=== PATIENT | female | born 1990 | race American Indian/Alaskan Native ===

== ENCOUNTER 2019-10-14 16:17 | Emergency (ER) | payer MEDICAID ==
--- NOTE | 2019-10-14 16:37 | Event Note ---
ED Screening Note ED Screening Note: cough for two days +sob +chest discomfort with coughing no PMHx +sick contact no allergies to meds LNMP: doesnt have cycles secondary to ablation non smoker This initial assessment/diagnostic orders/clinical plan/treatment(s) is/are subject to change based on patients health status, clinical progression and re- assessment by fellow clinical providers in the ED. Further treatment and workup at subsequent clinical providers discretion. Patient/guardian urged not to elope from the ED as their condition may be serious if not clinically assessed and managed. Initial orders include: sepsis initiated ibuprofen and tylenol given
[2019-10-14] MEDS ORDERED: SODIUM CHLORIDE 0.9% IV ONE (16:39)
[2019-10-14] MEDS ORDERED: IBUPROFEN 600 MG TAB PO ONE ×2 (16:41→18:08)
[2019-10-14] MEDS ORDERED: ACETAMINOPHEN 325 MG TAB ONE (16:41)
--- NOTE | 2019-10-14 17:15 | XRay Report ---
CHEST 2 VIEWS INDICATION / CLINICAL INFORMATION: cough, SOB, fever. COMPARISON: None available. FINDINGS: SUPPORT DEVICES: None. HEART / MEDIASTINUM: No significant abnormality. LUNGS / PLEURA: No significant pulmonary or pleural abnormality. No pneumothorax. ADDITIONAL FINDINGS: No significant additional findings. IMPRESSION: 1. No acute findings. Signer Name: Brown Harper MD Signed: 10/14/2019 5:11 PM Workstation Name: [id number]
[2019-10-14 17:54] LABS: Basophils # (Auto) 0.1 K/mm3 (0.0-0.1); Basophils % (Auto) 0.5 % (0.0-1.8); Eosinophils % (Auto) 0.2 % (0.0-4.3); Hematocrit 41.1 % (30.3-42.9); Hemoglobin 13.4 gm/dl (10.1-14.3); Lymphocytes # (Auto) 0.6 K/mm3 (1.2-5.4); Mean Corpuscular HGB Conc 33 % (30-34); Mean Corpuscular Volume 81 fl (79-97); Monocytes # (Auto) 1.3 K/mm3 (0.0-0.8); Monocytes % (Auto) 10.1 % (0.0-7.3); Platelet Count 253 K/mm3 (140-440); Red Blood Count 5.07 M/mm3 (3.65-5.03); Red Cell Distribution Width 13.5 % (13.2-15.2)
[2019-10-14] MEDS ORDERED: ACETAMINOPHEN 325 MG TAB PO ONE (18:08)
[2019-10-14 18:22] LABS: Alanine Aminotransferase 18 units/L (7-56); BUN/Creatinine Ratio 14; Blood Urea Nitrogen 10 mg/dL (7-17); Calcium 9.2 mg/dL (8.4-10.2); Hemolysis Index 6
--- NOTE | 2019-10-14 19:43 | Emergency Department Report ---
ED Chest Pain HPI - General Chief Complaint: Chest Pain Stated Complaint: SOB,CHEST ON FIRE/FLUID IN LUNGS Time Seen by Provider: 10/14/19 16:35 Source: patient Mode of arrival: Ambulatory Limitations: No Limitations - History of Present Illness Initial Comments: 29-year-old -Citizen Of [place] female presents to the emergency department with complaint of a 2 day history of shortness of breath and a cough. She denies any actual chest pain but says that her lungs feel like they are on fire when she coughs. She does present with a fever of 102.9F. No past medical history. No recent travel or sick contacts at home. She denies any tobacco or illicit drug use. Severity scale (0 -10): 6 - Related Data Allergies Allergy/AdvReac Type Severity Reaction Status Date / Time No Known Allergies Allergy Verified 10/14/19 16:30 ED Review of Systems ROS: Stated complaint: SOB,CHEST ON FIRE/FLUID IN LUNGS Other details as noted in HPI Comment: All other systems reviewed and negative Constitutional: denies: chills, fever Eyes: denies: eye pain, vision change ENT: denies: ear pain, throat pain Respiratory: cough, shortness of breath Cardiovascular: denies: chest pain, edema Gastrointestinal: denies: abdominal pain, vomiting Genitourinary: denies: dysuria, discharge Musculoskeletal: denies: back pain, arthralgia Skin: denies: rash, lesions Neurological: denies: headache, weakness ED Past Medical Hx - Past Medical History Previous Medical History?: No - Surgical History Past Surgical History?: No - Social History Smoking Status: Never Smoker Substance Use Type: None ED Physical Exam - General Limitations: No Limitations ED Course Vital Signs 10/14/19 10/14/19 10/14/19 16:35 18:18 18:19 Temperature 102.9 F H Pulse Rate 115 H Respiratory 20 18 18 Rate Blood Pressure 150/76 O2 Sat by Pulse 96 Oximetry ED Medical Decision Making - Lab Data Result diagrams: 10/14/19 17:33 10/14/19 17:33 Critical care attestation.: If time is entered above; I have spent that time in minutes in the direct care of this critically ill patient, excluding procedure time. ED Disposition Condition: Stable
[2019-10-14 20:32] LABS: Bilirubin,Urine NEG (Negative); Blood,Urine NEG (Negative); Color,Urine Red (Yellow); Mucus,Urine FEW /HPF; Protein,Urine <15 mg/dL mg/dL (Negative); Urobilinogen,Urine < 2.0 mg/dL (<2.0)
--- NOTE | 2019-10-14 22:33 | Cat Scan Report ---
CTA CHEST WITH IV CONTRAST INDICATION / CLINICAL INFORMATION: SOB, elevated dimer. TECHNIQUE: Axial CT images were obtained through the chest after injection of 100 mL IV contrast. 3 plane MIP an d/or 3D reconstructions were produced. All CT scans at this location are performed using CT dose redu ction for [facility] by means of automated exposure control. COMPARISON: Chest radiograph earlier today. FINDINGS: PULMONARY ARTERIES: No pulmonary emboli. THORACIC AORTA: No significant abnormality. HEART: No significant abnormality. CORONARY ARTERIES: No significant calcification. PLEURA: No pleural effusion. No pneumothorax. LYMPH NODES: No significant adenopathy. LUNGS: No acute air space or interstitial disease. ADDITIONAL FINDINGS: None. UPPER ABDOMEN: No acute findings. SKELETAL STRUCTURES: No significant osseous abnormality. IMPRESSION: 1. No CT evidence for pulmonary embolism. 2. No acute findings. Signer Name: Joyce Marc MD Signed: 10/14/2019 10:29 PM Workstation Name: [id number]
[2019-10-14] MEDS ORDERED: dexAMETHasone 20 MG/5 ML VIAL IV ONE (22:49)
[2019-10-14] MEDS ORDERED: IPRATROPIUM/ALBUTEROL SULFATE 3 ML AMPUL.NEB IH ONE (22:50)
--- NOTE | 2019-10-14 23:14 | Emergency Department Report ---
HPI - General Chief Complaint: Chest Pain Time Seen by Provider: 10/14/19 16:35 - HPI HPI: 29-year-old -[place] female presents to the emergency department with complaint of a 2 day history of shortness of breath and a cough. She denies any actual chest pain but says that her lungs feel like they are on fire when she coughs. She does present with a fever of 102.9F. No past medical history. No recent travel or sick contacts at home. She denies any tobacco or illicit drug use. ED Past Medical Hx - Past Medical History Previous Medical History?: No - Surgical History Past Surgical History?: No - Social History Smoking Status: Never Smoker Substance Use Type: None - Medications Home Medications: Home Medications Medication Instructions Recorded Confirmed Last Taken Type Albuterol INH(or & Nicu Only) 2 puff IH QID PRN #1 inh 10/14/19 Unknown Rx [ProAir HFA Inhaler] guaiFENesin/CODEINE [Robitussin AC] 5 ml PO Q6H PRN #100 ml 10/14/19 Unknown Rx ED Review of Systems ROS: Stated complaint: SOB,CHEST ON FIRE/FLUID IN LUNGS Other details as noted in HPI Comment: All other systems reviewed and negative Constitutional: fever. denies: chills Eyes: denies: eye pain, vision change ENT: denies: ear pain, throat pain Respiratory: cough, shortness of breath Cardiovascular: denies: chest pain, edema Gastrointestinal: denies: abdominal pain, vomiting Genitourinary: denies: dysuria, discharge Musculoskeletal: denies: back pain, arthralgia Skin: denies: rash, lesions Neurological: denies: headache, weakness Physical Exam - Physical Exam Vital Signs: Vital Signs 10/14/19 10/14/19 10/14/19 16:35 18:18 18:19 Temperature 102.9 F H Pulse Rate 115 H Respiratory 20 18 18 Rate Blood Pressure 150/76 Blood Pressure [Left] O2 Sat by Pulse 96 Oximetry 10/14/19 10/14/19 10/14/19 19:18 19:19 19:30 Temperature 99 F Pulse Rate 97 H Respiratory 16 15 16 Rate Blood Pressure Blood Pressure 131/72 [Left] O2 Sat by Pulse 96 Oximetry Physical Exam: GENERAL: The patient is well-developed well-nourished. HEENT: Normocephalic. Atraumatic. Patient has moist mucous membranes. EYES: Extraocular motions are intact. NECK: Supple. Trachea is midline. CHEST/LUNGS: Clear to auscultation. No cough heard during examination. There is no respiratory distress noted. HEART/CARDIOVASCULAR: Regular. There is mild tachycardia. There is no murmur. ABDOMEN: Abdomen is soft, nontender. Patient has normal bowel sounds. Morbidly obese habitus. SKIN:Skin is warm and dry. . NEURO: The patient is awake, alert, and oriented. The patient is cooperative. The patient has no focal neurologic deficits. Normal speech. MUSCULOSKELETAL: There is no tenderness or deformity. There is no evidence of acute injury. ED Course Vital Signs 10/14/19 10/14/19 10/14/19 16:35 18:18 18:19 Temperature 102.9 F H Pulse Rate 115 H Respiratory 20 18 18 Rate Blood Pressure 150/76 Blood Pressure [Left] O2 Sat by Pulse 96 Oximetry 10/14/19 10/14/19 10/14/19 19:18 19:19 19:30 Temperature 99 F Pulse Rate 97 H Respiratory 16 15 16 Rate Blood Pressure Blood Pressure 131/72 [Left] O2 Sat by Pulse 96 Oximetry ED Medical Decision Making - Lab Data Result diagrams: 10/14/19 17:33 10/14/19 17:33 - Radiology Data Radiology results: report reviewed, image reviewed interpreted by me: Chest x-ray does not show any pleural effusions, pneumonia, pneumothorax, focal consolidation, or any other acute process. CTA CHEST WITH IV CONTRAST INDICATION / CLINICAL INFORMATION: SOB, elevated dimer. TECHNIQUE: Axial CT images were obtained through the chest after injection of 100 mL IV contrast. 3 plane MIP and/or 3D reconstructions were produced. All CT scans at this location are performed using CT dose reduction for [facility] by means of automated exposure control. COMPARISON: Chest radiograph earlier today. FINDINGS: PULMONARY ARTERIES: No pulmonary emboli. THORACIC AORTA: No significant abnormality. HEART: No significant abnormality. CORONARY ARTERIES: No significant calcification. PLEURA: No pleural effusion. No pneumothorax. LYMPH NODES: No significant adenopathy. LUNGS: No acute air space or interstitial disease. ADDITIONAL FINDINGS: None. UPPER ABDOMEN: No acute findings. SKELETAL STRUCTURES: No significant osseous abnormality. IMPRESSION: 1. No CT evidence for pulmonary embolism. 2. No acute findings. - Medical Decision Making This patient presents to the emergency department with a few days of shortness of breath and a cough. Found to have a fever here with some tachycardia. Negative for influenza. Chest x-ray did not show any pneumonia, pleural effusions or any other acute process. Due to the shortness of breath and tachycardia, a d-dimer was ordered the came back just barely elevated at 254. However, for this reason, a CT angiography of the chest was completed that did not show any PE or any other acute process. Patient was given some Tylenol and ibuprofen and the fever resolved, as did the tachycardia. She was given a dose of steroids and a breathing treatment. Upon reevaluation patient is feeling improved. She'll be discharged home to follow up with primary care and has been given a prescription for an albuterol inhaler and Robitussin-AC for cough. She will return to the emergency Department with any worsening of her symptoms or any acute distress. - Differential Diagnosis influenza, viral URI, pneumonia, PE Critical Care Time: No Critical care attestation.: If time is entered above; I have spent that time in minutes in the direct care of this critically ill patient, excluding procedure time. ED Disposition Clinical Impression: Bronchitis Upper respiratory infection Qualifiers: URI type: unspecified URI Qualified Code(s): J06.9 - Acute upper respiratory infection, unspecified Fever Qualifiers: Fever type: unspecified Qualified Code(s): R50.9 - Fever, unspecified Disposition: DC-01 TO HOME OR SELFCARE Is pt being admited?: No Condition: Stable Instructions: Upper Respiratory Infection (ED), Acute Bronchitis (ED) Additional Instructions: Please follow up with a primary care physician in the next few days. Return to the emergency Department with any worsening of your symptoms or any acute distress. You can take Tylenol every 4-6 hours and ibuprofen every 6-8 hours, using weight-based dosing on the back of the bottle, as needed for any fever or discomfort. You have been prescribed a cough medication but has some codeine in it and therefore can be sedating. This medication cannot be taken prior to driving, working, being responsible for her children, but cannot be mixed with alcohol of any quantity. Prescriptions: Albuterol INH(or & Nicu Only) [ProAir HFA Inhaler] 2 puff IH QID PRN #1 inh PRN Reason: Shortness Of Breath guaiFENesin/CODEINE [Robitussin AC] 5 ml PO Q6H PRN #100 ml PRN Reason: Cough Referrals: PRIMARY CAREMD [Primary Care Provider] - 2-3 Days NANCY FARRIS MD [Staff Physician] - 2-3 Days [facility] [Outside] - 2-3 Days Time of Disposition: 23:31
[2019-10-15 00:47] VITALS: BP 119/65
== END 2019-10-15 00:29 | disposition home or self-care (01) ==
LOC: ED 16:17
DX: J40 Bronchitis, not specified as acute or chronic (principal); J06.9 Acute upper respiratory infection, unspecified; Z79.899 Other long term (current) drug therapy
CPT/HCPCS: 36415; 71046; 71275; 80053; 81001; 82140; 85025; 85379; 87040; 87400; 94640; 96374; 99285; J1100; J7030; Q9967; 94644